=== PATIENT | female | born 1980 | race Two or more races ===

== ENCOUNTER 2022-03-17 11:09 | Emergency (ER) | payer MEDICAID ==
[~2022-03-17] VITALS: Ht 160 cm; Wt 86.0 kg
[2022-03-17] MEDS ORDERED: LIDOCAINE HCL 1% 20ML VIAL (Pyxis) INJ INFIL ONE (12:00)
[2022-03-17] MEDS ORDERED: LIDOCAINE HCL 1% 20ML VIAL (Pyxis) INJ INFIL SCH (12:15)
[2022-03-17] MEDS ORDERED: HYDR500C18 PO (12:29)
[2022-03-17] MEDS ORDERED: CEPH500C2 MT (14:24)
[2022-03-17 14:47] VITALS: BP 130/82
== END 2022-03-17 11:15 | disposition home or self-care (01) ==
LOC: ER 11:09
DX: L60.0 Ingrowing nail (principal); L03.032 Cellulitis of left toe; R03.0 Elevated blood-pressure reading, without diagnosis of hypertension; D57.1 Sickle-cell disease without crisis; Z59.00 Homelessness unspecified
CPT/HCPCS: 11730; 99284; J3490

== ENCOUNTER 2023-05-28 11:49 | Emergency (ER) | payer MEDICAID, OTHER ==
[~2023-05-28] VITALS: Ht 172.7 cm; Wt 90.0 kg
[~2023-05-28 11:49] MED LIST: CEPH500C2 MT; HYDR500C18 PO
[2023-05-28 11:58] VITALS: BP 129/60; PULSE 52; RESP 16; TEMP 98.2; O2SAT 98
== END 2023-05-28 12:40 | disposition left against medical advice (07) ==
LOC: ER 11:49
DX: R53.1 Weakness (principal); Z53.21 Procedure and treatment not carried out due to patient leaving prior to being seen by health care provider
CPT/HCPCS: 99281